=== PATIENT | male | born 1975 | race Two or more races ===

== ENCOUNTER 2024-08-10 09:55 | Emergency (ER) | payer OTHER ==
[~2024-08-10] VITALS: Ht 175.3 cm; Wt 88.9 kg
[2024-08-10] MEDS ORDERED: KETOROLAC TROMETHAMINE 30 MG VIAL IM ONE (13:45)
== END 2024-08-10 14:29 | disposition home or self-care (01) ==
LOC: ER 09:57
DX: S80.11XA Contusion of right lower leg, initial encounter (principal); W18.39XA Other fall on same level, initial encounter; Y93.89 Activity, other specified; Y92.59 Other trade areas as the place of occurrence of the external cause; Y99.9 Unspecified external cause status; I10 Essential (primary) hypertension; Z88.0 Allergy status to penicillin
CPT/HCPCS: 73560; 73590; 73610; 73630; 96372; 99284; J1885